=== PATIENT | male | born 1980 | race African-American/Black ===

== ENCOUNTER 2017-02-06 00:46 | Emergency (ER) | payer OTHER ==
[~2017-02-06] VITALS: Ht 170.2 cm; Wt 63.5 kg
[2017-02-06 02:02] VITALS: BP 139/81
== END 2017-02-06 02:35 | disposition home or self-care (01) ==
LOC: EMS 00:48
DX: R06.02 Shortness of breath (principal); F17.290 Nicotine dependence, other tobacco product, uncomplicated
CPT/HCPCS: 93005; 99285